=== PATIENT | male | born 2005 | race Caucasian/White ===

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

== ENCOUNTER 2024-03-05 18:45 | Emergency (ER) | payer SELFPAY ==
[2024-03-05] MEDS: Ketorolac 60 MG/2 ML SDV IM ONE (20:06)
== END 2024-03-05 20:18 | disposition home or self-care (01) ==
LOC: JD.ED 18:45
DX: M25.561 Pain in right knee (principal); Z88.0 Allergy status to penicillin
CPT/HCPCS: 73562; 96372; 99283; J1885